=== PATIENT | male | born 1980 | race Caucasian/White ===

== ENCOUNTER 2020-06-22 11:31 | Emergency (ER) | payer OTHER ==
[2020-06-22] MEDS ORDERED: KETOROLAC 30 MG/ML 1ML VIAL ONE (12:24)
[2020-06-22] MEDS ORDERED: KETOROLAC 30 MG/ML 1ML VIAL As Ordered ONE (12:24)
[2020-06-22] MEDS ORDERED: ISOVUE-370 76% 100ML VIAL As Ordered ONE (14:11)
[2020-08-04 10:41] LABS: APPEARANCE, URINE MANUAL CLEAR (CLEAR); BILIRUBIN, URINE MANUAL NEGATIVE (NEGATIVE); BLOOD URINE MANUAL POSITIVE (NEGATIVE); COLOR, URINE MANUAL YELLOW (YELLOW); GLUCOSE, URINE (UA) MANUAL NEGATIVE (NEGATIVE); KETONE, URINE MANUAL NEGATIVE (NEGATIVE); LEUKOCYTE ESTERASE, URINE MAN TRACE (NEGATIVE); NITRITE, URINE MANUAL NEGATIVE (NEGATIVE); PROTEIN, URINE MANUAL NEGATIVE (NEGATIVE); SPECIFIC GRAVITY,URINE MANUAL 1.015 (1.002-1.035); UROBILINOGEN, URINE MANUAL NORMAL (NORMAL)
[2020-08-04 10:42] LABS: BACTERIA, URINE NONE SEEN; HYALINE CAST, URINE NONE SEEN /lpf (0-1); SQUAMOUS EPITHELIAL CELL URINE NONE SEEN /hpf (SMALL AMT); WBC, URINE 0-1 /hpf (0-3)
[2020-08-04 22:23] LABS: BASO % 0.2 % (0.0-1.0); EOS # 0.2 10^3/uL (0.0-0.5); EOS % 1.3 % (0.0-3.0); LYMPH # 2.5 10^3/uL (1.5-5.0); LYMPH % 17.8 % (24.0-44.0); MEAN CORPUSCULAR HEMOGLOBIN 31.8 pg (27.0-33.0); MEAN CORPUSCULAR HGB CONC 34.8 g/dl (32.0-36.5); MEAN CORPUSCULAR VOLUME 91.5 fl (80.0-96.0); MONO # 1.1 10^3/uL (0.0-0.8); MONO % 7.4 % (0.0-5.0); NEUTROPHILS # 10.4 10^3/uL (1.5-8.5); NEUTROPHILS % 73.1 % (36.0-66.0); PLATELET COUNT, AUTOMATED 286 10^3/uL (150-450); RED BLOOD COUNT 5.03 10^6/uL (4.30-6.10); WHITE BLOOD COUNT 14.3 10^3/uL (4.0-10.0)
== END 2020-06-22 13:51 | disposition home or self-care (01) ==
LOC: M ED 11:31
DX: K85.90 Acute pancreatitis without necrosis or infection, unspecified (principal); F17.210 Nicotine dependence, cigarettes, uncomplicated
CPT/HCPCS: 74177; 80053; 81000; 82550; 82553; 83690; 84484; 85025; 87086; 96361; 96374; 99284; J1885; Q9967

== ENCOUNTER → 2021-09-02 | Outpatient (REF) | payer OTHER | LOC: M SMT 18:33 | PROVIDERS: ATTEND Urology | DX: Z30.2 Encounter for sterilization (principal) ==

== ENCOUNTER → 2022-10-18 | Outpatient (CLI) | payer OTHER ==
[2022-10-18 11:08] LABS: BASO % 0.4 % (0.0-1.0); EOS # 0.3 10^3/uL (0.0-0.5); EOS % 3.2 % (0.0-3.0); HEMATOCRIT 43.8 % (42.0-52.0); HEMOGLOBIN 14.7 g/dl (13.5-17.5); LYMPH # 2.9 10^3/uL (1.5-5.0); LYMPH % 36.2 % (24.0-44.0); MEAN CORPUSCULAR HEMOGLOBIN 32.6 pg (27.0-33.0); MEAN CORPUSCULAR HGB CONC 33.6 g/dl (32.0-36.5); MEAN CORPUSCULAR VOLUME 97.1 fl (80.0-96.0); MONO # 0.8 10^3/uL (0.0-0.8); MONO % 10.1 % (2.0-8.0); NEUTROPHILS % 49.8 % (36.0-66.0); PLATELET COUNT, AUTOMATED 255 10^3/uL (150-450); RED BLOOD COUNT 4.51 10^6/uL (4.30-6.10); WHITE BLOOD COUNT 7.9 10^3/uL (4.0-10.0)
[2022-10-18 11:30] LABS: IRON (FE) 233 UG/DL (65-175); PERCENT SATURATION 64.7 % (19.7-50.0); TOTAL IRON BINDING CAPACITY 360 UG/DL (250-425)
[2022-10-18 11:35] LABS: ALBUMIN 4.1 G/DL (3.2-5.2); ALKALINE PHOSPHATASE 74 U/L (46-116); ALT/SGPT 22 U/L (7.0-40); AST/SGOT 15 U/L (<34); BILIRUBIN,TOTAL 1.3 MG/DL (0.3-1.2); BLOOD UREA NITROGEN 15 MG/DL (9-23); CALCIUM LEVEL 9.2 MG/DL (8.5-10.1); CARBON DIOXIDE LEVEL 28 MMOL/L (20-31); CHLORIDE LEVEL 104 MMOL/L (98-107); CHOLESTEROL LEVEL 176 MG/DL (<200); CHOLESTEROL RISK RATIO 3.28 (<5); CREATININE FOR GFR 0.82 MG/DL (0.70-1.30); FREE T4 1.19 NG/DL (0.89-1.76); GLOMERULAR FILTRATION RATE > 60.0 (>60); GLUCOSE, FASTING 87 MG/DL (60-100); HDL CHOLESTEROL 53.6 MG/DL (>40); NON-HDL-C 122 MG/DL; POTASSIUM SERUM 4.4 MMOL/L (3.5-5.1); SODIUM LEVEL 138 MMOL/L (136-145); THYROID STIMULATING HORMONE 2.664 uIU/ML (0.55-4.78); TOTAL 25(OH) VITAMIN D 27.4 NG/ML (20.0-100.0); TOTAL PROTEIN 6.7 G/DL (5.7-8.2); TRIGLYCERIDES LEVEL 187 MG/DL (<150)
[2022-10-19 10:09] LABS: TESTOSTERONE FREE (DIRECT) 17.5 pg/mL (6.8-21.5)
== END ==
LOC: M WUC 08:27
PROVIDERS: ATTEND Nurse Practitioner Adult Health
DX: R53.83 Other fatigue (principal); Z13.220 Encounter for screening for lipoid disorders; Z13.29 Encounter for screening for other suspected endocrine disorder

== ENCOUNTER → 2022-10-26 | Outpatient (CLI) | payer OTHER | LOC: M WUC 08:44 | PROVIDERS: ATTEND Nurse Practitioner Adult Health | DX: R79.0 Abnormal level of blood mineral (principal) ==

== ENCOUNTER 2025-03-22 06:58 | Day surgery (SDC) | payer OTHER ==
[~2025-03-22] VITALS: Ht 188 cm; Wt 123.3 kg
[~2025-03-22 06:58] MED LIST: LIDOCAINE 2% 100MG/5ML SDV (FOR ANES.) As Ordered ONE; propofoL 200 MG/20 ML VIAL As Ordered ONE
[2025-03-22 08:30] VITALS: TEMP 97.5
[2025-03-22 08:46] VITALS: BP 119/74; O2SAT 96
== END 2025-03-22 08:54 | disposition home or self-care (01) ==
LOC: M OPP 06:58
PROVIDERS: ATTEND Surgery
DX: Z12.11 Encounter for screening for malignant neoplasm of colon (principal); D12.6 Benign neoplasm of colon, unspecified; Z91.018 Allergy to other foods; F17.210 Nicotine dependence, cigarettes, uncomplicated